=== PATIENT | male | born 1990 | race Two or more races ===

== ENCOUNTER 2020-04-19 03:34 | Emergency (ER) | payer OTHER ==
[~2020-04-19] VITALS: Ht 162.6 cm; Wt 91.0 kg
[2020-04-19 03:45] VITALS: BP 139/77
[2020-04-19] MEDS ORDERED: MORPHINE SULFATE 4 MG/ML SYRINGE IVP ONE (04:00)
[2020-04-19] MEDS ORDERED: CeFAZolin 1 GM/DEXTROSE 50 ML IV ONE (04:00)
[2020-04-19] MEDS ORDERED: PERTUSS(ACELL),DIPH,TET VAC/PF 0.5 ML VIAL IM ONE (04:00)
== END 2020-04-19 04:30 | disposition short-term general hospital (02) ==
LOC: EMS 03:37
DX: S52.92XA Unspecified fracture of left forearm, initial encounter for closed fracture (principal); S99.911A Unspecified injury of right ankle, initial encounter; S29.9XXA Unspecified injury of thorax, initial encounter; W17.89XA Other fall from one level to another, initial encounter; Y93.89 Activity, other specified; Y92.89 Other specified places as the place of occurrence of the external cause; Y99.8 Other external cause status
CPT/HCPCS: 29125; 29515; 90471; 90715; 96365; 96375; 99291; J0690; J2270